=== PATIENT | female | born 1975 | race African-American/Black ===

== ENCOUNTER 2021-04-20 23:56 | Inpatient (IN) | payer MEDICAID ==
[~2021-04-20] VITALS: Ht 160 cm; Wt 73.6 kg
[2021-04-21] MEDS ORDERED: ONDANSETRON HCL 4MG/2ML INJ IV STA (00:44)
[2021-04-21] MEDS ORDERED: KETOROLAC 30MG/ML VIAL IV STA (00:44)
[2021-04-21] MEDS ORDERED: SODIUM CHLORIDE 0.9% 1,000 ML IV ONE (00:45)
[2021-04-21 01:06] LABS: BASOPHILS % 1.4 % (0.0-2.0); EOSINOPHILS % 6.2 % (0.0-5.0); HEMATOCRIT. 37.8 % (36.0-48.0); HEMOGLOBIN. 12.3 g/dL (12.0-16.0); LYMPHOCYTES % 41.4 % (20.0-50.0); MEAN CORPUSCULAR HEMOGLOBIN 28.4 pg (28.0-32.0); MEAN CORPUSCULAR VOLUME 87.6 fL (81.0-99.0); MEAN PLATELET VOLUME 7.5 fl (7.4-10.4); MONOCYTES % 7.5 % (2.0-8.0); NEUTROPHILS % 43.5 % (40.0-76.0); PLATELET 377 x1000/uL (130-400); RED BLOOD CELL COUNT 4.32 mill/uL (4.2-5.4); RED CELL DISTRIBUTION WIDTH 13.3 % (11.6-14.6)
[2021-04-21 01:23] LABS: CHLORIDE 102 mEq/L (98-107)
[2021-04-21 01:27] LABS: ETHANOL BLOOD < 10 mg/dL
[2021-04-21] MEDS ORDERED: MORPHINE SULFATE 4 MG/ML CPJ (NOT FOR IM USE) IV NR (02:00)
[2021-04-21] MEDS ORDERED: MORPHINE SULFATE 2 MG/ML CPJ (NOT FOR IM USE) IV NR (02:15)
[2021-04-21 02:42] LABS: CLARITY URINE CLEAR (CLEAR); COLOR URINE YELLOW (YELLOW); KETONES URINE NEGATIVE (NEGATIVE); LEUKOCYTE ESTERASE URINE NEGATIVE (NEGATIVE); NITRITE URINE NEGATIVE (NEGATIVE); OCCULT BLOOD URINE NEGATIVE (NEGATIVE); PH URINE 7.5 (4.5-8.0); PROTEIN URINE NEGATIVE (NEGATIVE); SPECIFIC GRAVITY URINE 1.033 (1.005-1.030)
[2021-04-21 02:55] LABS: *AMPHETAMINES SCREEN URINE NEGATIVE (NEGATIVE); *BARBITURATES SCREEN URINE NEGATIVE (NEGATIVE); METHADONE URINE SCREEN NEGATIVE (NEGATIVE); OPIATES URINE SCREEN NEGATIVE (NEGATIVE); PHENCYCLIDINE URINE SCREEN NEGATIVE (NEGATIVE)
[2021-04-21 02:56] LABS: *BENZODIAZEPINES SCREEN URINE NEGATIVE (NEGATIVE)
[2021-04-21 03:03] LABS: *COCAINE SCREEN URINE PRESUMTIVE POSITIVE (NEGATIVE); CANNABINOID URINE SCREEN PRESUMTIVE POSITIVE (NEGATIVE)
[2021-04-21] MEDS ORDERED: NALOXONE HCL 0.4MG/ML VIAL IV PRN (05:00)
[2021-04-21] MEDS: HYDROCODONE/APAP 7.5/325MG 1 TAB TABLET PO PRN ×3 (05:20→21:47)
[2021-04-21] MEDS ORDERED: DEXTROSE 50% WATER 50ML SYRINGE IV PRN (07:45)
[2021-04-21] MEDS ORDERED: INSULIN GLARGINE UD 100 UNITS/ML SYR SUBCUT SCH (10:00)
[2021-04-21] MEDS: BLOOD SUGAR DIAGNOSTIC STRIP TEST SCH ×3 (11:30→21:00)
[2021-04-21] MEDS: INSULIN LISPRO 100 UNITS/ML SUBCUT SCH ×5 (13:25→21:41)
[2021-04-21 13:29] VITALS: BP 124/70
[2021-04-21 13:47] VITALS: BP 124/70
[2021-04-21] MEDS ORDERED: ESCI20TA PO (14:02)
[2021-04-21] MEDS ORDERED: ALPR0.25 MT (14:02)
[2021-04-21 16:00] VITALS: BP 138/69
[2021-04-21] MEDS: ALPRAZOLAM 0.5 MG TABLET PO PRN (17:00)
[2021-04-21 17:32] LABS: BASOPHILS % 0.8 % (0.0-2.0); EOSINOPHILS % 6.2 % (0.0-5.0); HEMATOCRIT. 37.2 % (36.0-48.0); HEMOGLOBIN. 12.2 g/dL (12.0-16.0); MEAN CORPUSCULAR VOLUME 88.2 fL (81.0-99.0); MEAN PLATELET VOLUME 7.9 fl (7.4-10.4); MONOCYTES % 7.7 % (2.0-8.0); NEUTROPHILS % 50.3 % (40.0-76.0); PLATELET 383 x1000/uL (130-400); RED BLOOD CELL COUNT 4.22 mill/uL (4.2-5.4); RED CELL DISTRIBUTION WIDTH 13.2 % (11.6-14.6)
[2021-04-21 17:42] LABS: CHLORIDE 104 mEq/L (98-107)
[2021-04-21 20:00] VITALS: BP 126/59
[2021-04-21] MEDS: GABAPENTIN 100MG CAPSULE PO SCH (21:40)
[2021-04-21] MEDS: LISINOPRIL 5MG TABLET PO SCH (22:43)
[2021-04-22] VITALS: BP 99/54
[2021-04-22] MEDS: HYDROCODONE/APAP 7.5/325MG 1 TAB TABLET PO PRN ×3 (03:57→17:14)
[2021-04-22 04:00] VITALS: BP 117/52
[2021-04-22] MEDS: BLOOD SUGAR DIAGNOSTIC STRIP TEST SCH ×4 (06:02→20:53)
[2021-04-22] MEDS: GABAPENTIN 100MG CAPSULE PO SCH ×2 (06:30→15:24)
[2021-04-22] MEDS: INSULIN LISPRO 100 UNITS/ML SUBCUT SCH ×7 (06:32→20:54)
[2021-04-22 08:00] VITALS: BP 126/66
[2021-04-22] MEDS ORDERED: PNEUMOCOCCAL 23-VAL P-SAC VAC 0.5 ML IM ONE (09:00)
[2021-04-22] MEDS ORDERED: INFLUENZA VACCINE 05/PF 0.5 ML SYRINGE IM ONE (09:00)
[2021-04-22] MEDS: LISINOPRIL 5MG TABLET PO SCH (09:28)
[2021-04-22] MEDS: INSULIN GLARGINE UD 100 UNITS/ML SYR SUBCUT SCH (09:29)
[2021-04-22 10:02] LABS: UCG SCREEN NEGATIVE
[2021-04-22] MEDS: ALPRAZOLAM 0.5 MG TABLET PO PRN ×2 (11:48→21:25)
[2021-04-22 12:00] VITALS: BP 126/76
[2021-04-22 16:00] VITALS: BP 120/66
[2021-04-22] MEDS: DULOXETINE HCL 30MG DR CAPSULE PO SCH (17:11)
[2021-04-22 20:00] VITALS: BP 132/64
[2021-04-23] VITALS: BP 126/69
[2021-04-23 04:00] VITALS: BP 113/76
[2021-04-23] MEDS: HYDROCODONE/APAP 7.5/325MG 1 TAB TABLET PO PRN ×2 (04:10→10:16)
[2021-04-23] MEDS: BLOOD SUGAR DIAGNOSTIC STRIP TEST SCH ×2 (06:04→11:40)
[2021-04-23] MEDS: INSULIN LISPRO 100 UNITS/ML SUBCUT SCH ×4 (06:18→12:56)
[2021-04-23 07:16] LABS: CHLORIDE 103 mEq/L (98-107)
[2021-04-23 08:00] VITALS: BP 107/68
[2021-04-23] MEDS: LISINOPRIL 5MG TABLET PO SCH (09:00)
[2021-04-23] MEDS: DULOXETINE HCL 30MG DR CAPSULE PO SCH (09:05)
[2021-04-23] MEDS: INSULIN GLARGINE UD 100 UNITS/ML SYR SUBCUT SCH (10:17)
[2021-04-23] MEDS ORDERED: KETOROLAC 30MG/ML VIAL IV PRN (11:30)
[2021-04-23 12:00] VITALS: BP 139/81
[2021-04-23] MEDS ORDERED: LORAZEPAM 2MG/ML CPJ IV NR (12:15)
[2021-04-23] MEDS ORDERED: IOHEXOL-300 100 ML BOTTLE ONE (16:05)
[2021-04-23] MEDS ORDERED: LANTUSUD SUBCUT (17:27)
[2021-04-23] MEDS ORDERED: ALPR0.5T PO (17:27)
[2021-04-23] MEDS ORDERED: INSLIS SUBCUT (17:27)
[2021-04-23] MEDS ORDERED: LISI-186 PO (17:27)
[2021-04-23] MEDS ORDERED: DULO30CA2 PO (17:27)
[2021-04-23 18:06] VITALS: BP 152/83
== END 2021-04-23 18:28 | disposition home or self-care (01) | DRG 420 ==
LOC: ER 23:56 → MICUSO 04-21 02:15 → 7EST 04-21 12:39
PROVIDERS: ADMIT Internal Medicine; ATTEND Internal Medicine
DX: E11.65 Type 2 diabetes mellitus with hyperglycemia (principal); E11.40 Type 2 diabetes mellitus with diabetic neuropathy, unspecified; E78.5 Hyperlipidemia, unspecified; I10 Essential (primary) hypertension; F41.9 Anxiety disorder, unspecified; F32.A Depression, unspecified; Z88.1 Allergy status to other antibiotic agents; Z88.5 Allergy status to narcotic agent; Z98.891 History of uterine scar from previous surgery
CPT/HCPCS: 36415; 71045; 74177; 80048; 80053; 80305; 80320; 81003; 81025; 82962; 83036; 84132; 84484; 85025; 90686; 90732; 99285; J1815; J1885; J2060; J2270; J2405; J7030; Q9967; G0480

== ENCOUNTER 2021-05-13 23:09 | Emergency (ER) | payer MEDICAID ==
[~2021-05-13] VITALS: Ht 160 cm; Wt 64.0 kg
[~2021-05-13 23:09] MED LIST: ALPR0.5T PO; DULO30CA2 PO; INSLIS SUBCUT; LANTUSUD SUBCUT; LISI-186 PO
[2021-05-13] MEDS ORDERED: SODIUM CHLORIDE 0.9% 1,000 ML IV ONE (23:30)
[2021-05-14 00:52] LABS: BASOPHILS % 1.2 % (0.0-2.0); EOSINOPHILS % 4.2 % (0.0-5.0); HEMATOCRIT. 39.1 % (36.0-48.0); LYMPHOCYTES % 28.7 % (20.0-50.0); MEAN CORPUSCULAR HEMOGLOBIN 28.9 pg (28.0-32.0); MEAN CORPUSCULAR VOLUME 87.3 fL (81.0-99.0); MEAN PLATELET VOLUME 8.2 fl (7.4-10.4); MONOCYTES % 6.4 % (2.0-8.0); NEUTROPHILS % 59.5 % (40.0-76.0); PLATELET 346 x1000/uL (130-400); RED BLOOD CELL COUNT 4.48 mill/uL (4.2-5.4); RED CELL DISTRIBUTION WIDTH 13.5 % (11.6-14.6)
[2021-05-14 01:10] LABS: CHLORIDE 100 mEq/L (98-107)
[2021-05-14 01:16] LABS: ETHANOL BLOOD < 10 mg/dL
[2021-05-14 01:18] LABS: BETA HYDROXYBUTYRATE 0.1 mMol/L (0.0-0.3)
[2021-05-14] MEDS ORDERED: ONDANSETRON HCL 4MG/2ML INJ IV ONE (01:30)
[2021-05-14] MEDS ORDERED: GABAPENTIN 300MG CAPSULE PO ONE (01:30)
[2021-05-14] MEDS ORDERED: KETOROLAC 15MG/ML VIAL IV ONE (01:30)
[2021-05-14] MEDS ORDERED: INSULIN LISPRO 100 UNITS/ML SUBCUT ONE (01:30)
[2021-05-14] MEDS ORDERED: MORPHINE SULFATE 4 MG/ML CPJ (NOT FOR IM USE) IV ONE (01:30)
[2021-05-14 02:45] VITALS: BP 130/79
== END 2021-05-14 02:47 | disposition home or self-care (01) ==
LOC: ER 23:09
DX: E11.65 Type 2 diabetes mellitus with hyperglycemia (principal); E11.42 Type 2 diabetes mellitus with diabetic polyneuropathy; R00.0 Tachycardia, unspecified; I10 Essential (primary) hypertension; Z79.4 Long term (current) use of insulin; Z88.5 Allergy status to narcotic agent; Z98.890 Other specified postprocedural states
CPT/HCPCS: 36415; 80053; 80320; 81025; 82010; 82962; 83036; 83605; 84484; 85025; 93005; 96361; 96372; 96374; 96375; 99284; J1815; J2270; J2405; J7030; J1885; G0480

== ENCOUNTER 2021-08-18 06:59 | Emergency (ER) | payer MEDICAID ==
[~2021-08-18] VITALS: Ht 160 cm; Wt 63.0 kg
[2021-08-18 07:39] LABS: BASOPHILS % 0.9 % (0.0-2.0); EOSINOPHILS % 5.4 % (0.0-5.0); HEMATOCRIT. 36.8 % (36.0-48.0); LYMPHOCYTES % 29.9 % (20.0-50.0); MEAN CORPUSCULAR HEMOGLOBIN 28.4 pg (28.0-32.0); MEAN CORPUSCULAR VOLUME 87.2 fL (81.0-99.0); MONOCYTES % 7.8 % (2.0-8.0); PLATELET 354 x1000/uL (130-400); RED BLOOD CELL COUNT 4.22 mill/uL (4.2-5.4); RED CELL DISTRIBUTION WIDTH 13.4 % (11.6-14.6)
[2021-08-18 07:47] LABS: CHLORIDE 98 mEq/L (98-107)
[2021-08-18 08:04] LABS: BETA HYDROXYBUTYRATE 0.1 mMol/L (0.0-0.3)
[2021-08-18 08:25] LABS: CLARITY URINE CLEAR (CLEAR); COLOR URINE YELLOW (YELLOW); KETONES URINE NEGATIVE (NEGATIVE); LEUKOCYTE ESTERASE URINE NEGATIVE (NEGATIVE); NITRITE URINE POSITIVE (NEGATIVE); OCCULT BLOOD URINE NEGATIVE (NEGATIVE); PROTEIN URINE NEGATIVE (NEGATIVE); SPECIFIC GRAVITY URINE 1.031 (1.005-1.030)
[2021-08-18 08:28] LABS: BG CARBOXYHEMOGLOBIN 1.6 % (0.5-1.5); BG DEOXYHEMOGLOBIN 4.7 % (0.0-5.0); BG HCO3 ACT 25.2 mmol/L (22.0-26.0); BG METHEMOGLOBIN 0.3 % (0.0-1.5); BG OXYGEN SATURATION 95.2 % (92.0-98.5); BG OXYHEMOGLOBIN 93.4 % (94.0-97.0); BG PH 7.385 (7.350-7.450); BG PO2 76.8 mmHg (75.0-100.0); BG SAMPLE SITE RIGHT RADIAL; BG TOTAL HEMOGLOBIN 12.7 g/dL (12.0-18.0); BG VENT MODE ROOM AIR
[2021-08-18 08:30] LABS: *AMPHETAMINES SCREEN URINE NEGATIVE (NEGATIVE); *BARBITURATES SCREEN URINE NEGATIVE (NEGATIVE); *BENZODIAZEPINES SCREEN URINE NEGATIVE (NEGATIVE); METHADONE URINE SCREEN NEGATIVE (NEGATIVE); OPIATES URINE SCREEN NEGATIVE (NEGATIVE)
[2021-08-18 08:31] LABS: CANNABINOID URINE SCREEN NEGATIVE (NEGATIVE); PHENCYCLIDINE URINE SCREEN NEGATIVE (NEGATIVE)
[2021-08-18 08:39] LABS: *COCAINE SCREEN URINE PRESUMTIVE POSITIVE (NEGATIVE)
[2021-08-18] MEDS ORDERED: SODIUM CHLORIDE 0.9% 1,000 ML IV ONE (08:45)
[2021-08-18] MEDS ORDERED: INSULIN REGULAR (HUMULIN R) 300UNITS/3ML VIAL SUBCUT ONE (08:45)
[2021-08-18] MEDS ORDERED: ACETAMINOPHEN 650MG/20.3ML UDC PO ONE (08:45)
[2021-08-18] MEDS ORDERED: GABA300C MT (10:51)
[2021-08-18 11:06] VITALS: BP 136/71
== END 2021-08-18 11:16 | disposition home or self-care (01) ==
LOC: ER 06:59
DX: R07.89 Other chest pain (principal); F14.10 Cocaine abuse, uncomplicated; F12.10 Cannabis abuse, uncomplicated; E11.9 Type 2 diabetes mellitus without complications; I10 Essential (primary) hypertension; Z88.5 Allergy status to narcotic agent; Z88.1 Allergy status to other antibiotic agents
CPT/HCPCS: 36415; 36600; 71045; 80053; 80305; 81003; 81025; 82010; 82375; 82805; 82962; 83880; 84484; 85025; 85379; 93005; 96372; 99285; J1815; J7030